=== PATIENT | male | born 1965 ===

== ENCOUNTER 2024-10-17 11:59 | Emergency (ER) | payer OTHER ==
[~2024-10-17] VITALS: Ht 172.7 cm; Wt 79.4 kg
[2024-10-17] MEDS ORDERED: Aspirin 325 MG Tab PO ONE (13:25)
[2024-10-17] MEDS ORDERED: NS 1,000 ML IV ONE (13:37)
[2024-10-17 13:45] LABS: BASOPHILS ABSOLUTE AUTO 0.06 K/mm3 (0.00-0.23); BASOPHILS PERCENT AUTO 1 % (0-2); EOSINOPHILS ABSOLUTE AUTO 0.09 K/mm3 (0.00-0.68); EOSINOPHILS PERCENT AUTO 1 % (0-6); Hematocrit 44.8 % (37.0-53.0); Hemoglobin 15.1 g/dL (13.5-17.5); IMMATURE GRAN ABSOLUTE AUTO 0.06 K/mm3 (0.00-0.10); IMMATURE GRAN PERCENT AUTO 1 % (0-1); LYMPHOCYTES ABSOLUTE AUTO 2.51 K/mm3 (0.84-5.20); LYMPHOCYTES PERCENT AUTO 25 % (21-46); MONOCYTES ABSOLUTE AUTO 0.74 K/mm3 (0.16-1.47); MONOCYTES PERCENT AUTO 7 % (4-13); Mean Corpuscular HGB 32.9 pg (26.0-34.0); Mean Corpuscular HGB Conc 33.7 g/dL (31.5-36.5); Mean Corpuscular Volume 98 fL (80-100); Mean Platelet Volume 10.2 fL (9.1-12.4); NEUTROPHILS ABSOLUTE AUTO 6.72 K/mm3 (1.96-9.15); NEUTROPHILS PERCENT AUTO 66 % (41-73); Platelet Count 832 K/mm3 (150-400); RDW Coefficient Variation 14.6 % (11.7-14.2); RDW Standard Deviation 52.1 fL (35.1-46.3); Red Blood Cell Count 4.59 M/mm3 (4.30-5.90); White Blood Cell Count 10.18 K/mm3 (4.00-11.30)
[2024-10-17 13:53] LABS: International Normalized Ratio 0.99; Prothrombin Time Results 10.6 Sec (9.7-11.5)
[2024-10-17] MEDS ORDERED: HydrALAZINE HCl 20 MG / ML 1ML Vial IV ONE ×2 (14:10→14:55)
[2024-10-17 14:12] LABS: Albumin, Blood 4.1 g/dL (3.4-5.0); Albumin/Globulin Ratio 1.3 (0.8-1.8); Bilirubin, Total 1.2 mg/dL (0.1-1.0); Bun/Creatinine Ratio 18.9 (12.0-20.0); Calcium, Blood 9.4 mg/dL (8.5-10.1); Creatinine, Blood 1.22 mg/dL (0.60-1.20); Globulin, Blood 3.1 g/dL (2.2-4.0); Potassium, Blood 4.5 mmol/L (3.5-5.5); Total Protein, Blood 7.2 g/dL (6.4-8.2)
[2024-10-17] MEDS ORDERED: Clopidogrel Bisulfate 75 MG Tab PO ONE (14:25)
[2024-10-17] MEDS ORDERED: OxyCODONE HCL 5 MG TAB PO ONE (15:00)
[2024-10-17] MEDS ORDERED: LORazepam 1 MG Tab PO ONE ×2 (16:10→19:05)
[2024-10-17 16:12] LABS: Source, Urine Clean Catch
[2024-10-17 16:21] LABS: Bilirubin, Urine Neg (Neg); Blood, Urine Neg (Neg); Glucose Qualitative, Urine Neg (Neg); Ketones, Urine Neg (Neg); Leukocyte Esterase, Urine Neg (Neg); Nitrite, Urine Neg (Neg); Protein, Urine Neg (Neg); Urobilinogen, Urine NORM (Normal)
[2024-10-17 16:46] LABS: Appearance, Urine Clear (Clear); Color, Urine Pale Yellow (P-Yellow)
[2024-10-17 16:48] LABS: U Amphetamine Screen Not Detected; U Barbituate Screen Not Detected; U Benzodiazapine Screen Not Detected; U Buprenorphine Screen Not Detected; U Cannabinoids Screen DETECTED; U Cocaine Screen Not Detected; U Methadone Screen Not Detected; U Methamphetamine Screen Not Detected; U Opiates Screen Not Detected; U Oxycodone Screen Not Detected; U Phencyclidine Screen Not Detected
[2024-10-17] MEDS ORDERED: Morphine Sulfate 4 MG/1 ML Injection IV ONE (17:30)
[2024-10-17] MEDS ORDERED: Nicotine Polacrilex 2 MG Gum PO PRN (19:05)
[2024-10-17] MEDS ORDERED: Nicotine 21 MG PATCH TOP ONE (19:05)
[2024-10-18] MEDS ORDERED: LORazepam 2 MG/ML 1ML Injection IV ONE (01:15)
== END 2024-10-18 05:52 | disposition home or self-care (01) ==
LOC: ER 11:59
PROVIDERS: Physician Assistant; Student in an Organized Health Care Education/Training Program
DX: I65.22 Occlusion and stenosis of left carotid artery (principal); R47.01 Aphasia; I10 Essential (primary) hypertension; Z86.73 Personal history of transient ischemic attack (TIA), and cerebral infarction without residual deficits; Z88.7 Allergy status to serum and vaccine
CPT/HCPCS: 70450; 70496; 70498; 80053; 81003; 82140; 82947; 84484; 85025; 85610; 93005; 93010; 96361; 96374-59; 96375; 99285-25; A9270; J0360; J2060; J2270; J7030; Q9967

== ENCOUNTER → 2024-11-06 | Outpatient (CLI) | payer OTHER ==
[~2024-11-06] MED LIST: AMLO5 PO; ATOR80 PO; Aspir 8181 MG PO; B-1100 M1 PO; CLOP75 PO; CYMBALTA30 M2 PO; FOLI1 PO; HYDURE500 PO; Hydroxyzine HCl50 MG PO; LATUDA120 M1 PO; NEURONTIN300 MG PO; Naltrexone HCl50 MG PO; Norco 5-325 Ta1 EACH PO; OLME20 PO; OLMESARTAN MEDO40 MG PO; PANT40 PO; PRAZOSIN HCL1 M2 PO; VITAMIN B-1100 M1 PO
[2024-11-06 16:24] LABS: BASOPHILS ABSOLUTE AUTO 0.05 K/mm3 (0.00-0.23); BASOPHILS PERCENT AUTO 1 % (0-2); EOSINOPHILS ABSOLUTE AUTO 0.15 K/mm3 (0.00-0.68); EOSINOPHILS PERCENT AUTO 2 % (0-6); Hematocrit 39.1 % (37.0-53.0); IMMATURE GRAN ABSOLUTE AUTO 0.05 K/mm3 (0.00-0.10); IMMATURE GRAN PERCENT AUTO 1 % (0-1); LYMPHOCYTES ABSOLUTE AUTO 2.91 K/mm3 (0.84-5.20); LYMPHOCYTES PERCENT AUTO 33 % (21-46); MONOCYTES ABSOLUTE AUTO 0.67 K/mm3 (0.16-1.47); MONOCYTES PERCENT AUTO 8 % (4-13); Mean Corpuscular HGB 32.7 pg (26.0-34.0); Mean Corpuscular HGB Conc 33.2 g/dL (31.5-36.5); Mean Corpuscular Volume 99 fL (80-100); Mean Platelet Volume 9.9 fL (9.1-12.4); NEUTROPHILS ABSOLUTE AUTO 4.98 K/mm3 (1.96-9.15); NEUTROPHILS PERCENT AUTO 57 % (41-73); RDW Coefficient Variation 14.6 % (11.7-14.2); RDW Standard Deviation 51.8 fL (35.1-46.3); Red Blood Cell Count 3.97 M/mm3 (4.30-5.90); White Blood Cell Count 8.81 K/mm3 (4.00-11.30)
[2024-11-06 16:37] LABS: Platelet Count 1070 K/mm3 (150-400)
[2024-11-06 16:38] LABS: Albumin, Blood 3.7 g/dL (3.4-5.0); Albumin/Globulin Ratio 1.2 (0.8-1.8); Creatinine, Blood 1.22 mg/dL (0.60-1.20); Globulin, Blood 3.1 g/dL (2.2-4.0); Potassium, Blood 4.1 mmol/L (3.5-5.5); Total Protein, Blood 6.8 g/dL (6.4-8.2)
== END ==
LOC: LAB SHORT 16:13 → LAB 16:13
DX: D75.839 Thrombocytosis, unspecified (principal)
CPT/HCPCS: 80053; 83605; 85025; 85651; 86141

== ENCOUNTER 2024-12-01 13:40 | Inpatient (IN) | payer OTHER ==
[~2024-12-01] VITALS: Ht 175.3 cm; Wt 88.1 kg
[2024-12-01] MEDS ORDERED: Norvasc5 MG PO ×2 (13:55)
[2024-12-01] MEDS ORDERED: NS 1,000 ML IV SCH ×2 (14:30→17:35)
[2024-12-01 14:47] LABS: BASOPHILS ABSOLUTE AUTO 0.08 K/mm3 (0.00-0.23); BASOPHILS PERCENT AUTO 1 % (0-2); EOSINOPHILS ABSOLUTE AUTO 0.21 K/mm3 (0.00-0.68); EOSINOPHILS PERCENT AUTO 2 % (0-6); Hematocrit 39.4 % (37.0-53.0); Hemoglobin 13.8 g/dL (13.5-17.5); IMMATURE GRAN ABSOLUTE AUTO 0.16 K/mm3 (0.00-0.10); IMMATURE GRAN PERCENT AUTO 1 % (0-1); LYMPHOCYTES ABSOLUTE AUTO 2.92 K/mm3 (0.84-5.20); LYMPHOCYTES PERCENT AUTO 23 % (21-46); MONOCYTES ABSOLUTE AUTO 0.96 K/mm3 (0.16-1.47); MONOCYTES PERCENT AUTO 8 % (4-13); Mean Corpuscular HGB Conc 35.0 g/dL (31.5-36.5); Mean Corpuscular Volume 96 fL (80-100); NEUTROPHILS ABSOLUTE AUTO 8.46 K/mm3 (1.96-9.15); NEUTROPHILS PERCENT AUTO 66 % (41-73); NRBC ABSOLUTE 0.00 K/mm3 (0.00-0.02); NRBC Auto 0.0 /100 WBC (0.0-0.2); RDW Coefficient Variation 15.5 % (11.7-14.2); RDW Standard Deviation 55.0 fL (35.1-46.3)
[2024-12-01 14:57] LABS: Platelet Count 1133 K/mm3 (150-400)
[2024-12-01 15:13] LABS: Source, Urine Clean Catch
[2024-12-01 15:23] LABS: Alanine Aminotransfer (ALT/SGP 37.0 U/L (12-78); Albumin, Blood 3.8 g/dL (3.4-5.0); Albumin/Globulin Ratio 1.2 (0.8-1.8); Anion Gap 9.0 mmol/L (3-11); Aspartate Aminotrans (AST/SGOT 26.0 U/L (12-37); Bilirubin, Total 0.8 mg/dL (0.1-1.0); Blood Urea Nitrogen 13.0 mg/dL (8-24); CO2, Blood 27.0 mmol/L (21-32); Calcium, Blood 8.7 mg/dL (8.5-10.1); Chloride, Blood 106.0 mmol/L (98-108); Creatinine, Blood 1.09 mg/dL (0.60-1.20); Globulin, Blood 3.1 g/dL (2.2-4.0); Glucose, Blood 101.0 mg/dL (70-99); Potassium, Blood 3.6 mmol/L (3.5-5.5); Sodium, Blood 138.0 mmol/L (136-145); Total Protein, Blood 6.9 g/dL (6.4-8.2)
[2024-12-01 15:45] LABS: Bilirubin, Urine Neg (Neg); Color, Urine Yellow (P-Yellow); Glucose Qualitative, Urine Neg (Neg); Ketones, Urine Neg (Neg); Leukocyte Esterase, Urine Neg (Neg); Protein, Urine 1+ (Neg); Specific Gravity, Urine 1.020 (1.003-1.022); Urobilinogen, Urine NORM (Normal)
[2024-12-01] MEDS ORDERED: FentaNYL Citrate 50 MCG/ML 2 ML Injection IV PRN (17:05)
[2024-12-01 18:00] VITALS: BP 161/92
--- NOTE | 2024-12-01 19:18 | NUR ---
ARRIVAL/SHIFT SUMMARY PT ARRIVED TO THE FLOOR AROUND 1744, TRANSFERRED SELF TO HIS BED THOUGH HE WAS A BIT UNSTEADY ON HIS FEET WHEN HE FIRST STOOD UP. ORIENTED HIM TO THE UNIT AND PRIMARY STAFF (RN/PCT/RESIDENTIAL APPRAISER). [facility] STROKE SCALE TEST PERFORMED, PT SAID SOME OF THE TASKS MAKE HIM LIGHT HEADED BUT HE WAS ABLE TO COMPLETE THEM ALL (SEE NIH STROKE ASSESSMENT). HE WAS PLEASANT WITH STAFF TODAY, BOLUS RUNNING AT TIME OF ARRIVAL AND WAS DISCONNECTED WHEN COMPLETED. NO ACUTE EVENTS SINCE ARRIVAL. CALL LIGHT IN REACH.
[2024-12-01 20:24] VITALS: BP 123/86
[2024-12-01] MEDS ORDERED: LURASIDONE (LATUDA) 20 MG TABLET PO SCH (21:00)
[2024-12-01 23:30] VITALS: BP 122/81
[2024-12-02 03:37] VITALS: BP 127/87
[2024-12-02 04:24] LABS: BASOPHILS ABSOLUTE AUTO 0.08 K/mm3 (0.00-0.23); BASOPHILS PERCENT AUTO 1 % (0-2); EOSINOPHILS ABSOLUTE AUTO 0.23 K/mm3 (0.00-0.68); EOSINOPHILS PERCENT AUTO 2 % (0-6); Hematocrit 35.7 % (37.0-53.0); Hemoglobin 12.0 g/dL (13.5-17.5); IMMATURE GRAN ABSOLUTE AUTO 0.12 K/mm3 (0.00-0.10); IMMATURE GRAN PERCENT AUTO 1 % (0-1); LYMPHOCYTES ABSOLUTE AUTO 2.90 K/mm3 (0.84-5.20); LYMPHOCYTES PERCENT AUTO 29 % (21-46); MONOCYTES ABSOLUTE AUTO 0.72 K/mm3 (0.16-1.47); MONOCYTES PERCENT AUTO 7 % (4-13); Mean Corpuscular HGB Conc 33.6 g/dL (31.5-36.5); Mean Corpuscular Volume 98 fL (80-100); NEUTROPHILS ABSOLUTE AUTO 6.04 K/mm3 (1.96-9.15); NEUTROPHILS PERCENT AUTO 60 % (41-73); NRBC ABSOLUTE 0.00 K/mm3 (0.00-0.02); NRBC Auto 0.0 /100 WBC (0.0-0.2); Platelet Count 951 K/mm3 (150-400); RDW Coefficient Variation 15.6 % (11.7-14.2); RDW Standard Deviation 55.8 fL (35.1-46.3)
[2024-12-02 04:43] LABS: Anion Gap 6.0 mmol/L (3-11); Blood Urea Nitrogen 15.0 mg/dL (8-24); CO2, Blood 27.0 mmol/L (21-32); Calcium, Blood 8.7 mg/dL (8.5-10.1); Chloride, Blood 109.0 mmol/L (98-108); Creatinine, Blood 1.11 mg/dL (0.60-1.20); Glucose, Blood 101.0 mg/dL (70-99); Potassium, Blood 4.1 mmol/L (3.5-5.5); Sodium, Blood 138.0 mmol/L (136-145)
--- NOTE | 2024-12-02 06:48 | NUR ---
PT ALERT AND ORIENTED X4. AMBULATING INDEPENDENTLY IN THE ROOM AND TO THE BATHROOM. PT STILL COMPLAINING OF RIGHT SIDED WEAKNESS AND JOINT PAIN. MEDICATED PER MAR WHICH RESOLVED THE PAIN. NO COMPLAINS OF CHEST PAIN. ON ROOM AIR. PT EDUCATED ON SMOKING CESSATTION AND VERBALLY STATES UNDERSTANDING. PT ALSO ADVISED TO HAVE FAMILY BRING IN HIS HOME MEDS ( LATUDA) PER PHARMACY IT IS NOT AVAILABLE. CALL ECHOLS WITHIN REACH.NO FURTHER STROKE LIKE SYMPTOMS WITH THE EXCEPTION OF THE RESIDUAL OF PREVOIUS STROKES AND WHAT PT PRESENTED WITH IN THE ED.
[2024-12-02 07:52] VITALS: BP 137/93
[2024-12-02] MEDS ORDERED: DULoxetine HCL 30 MG Cap DR PO SCH (09:00)
[2024-12-02] MEDS ORDERED: Enoxaparin 40 MG/0.4 ML SYR SC SCH (09:00)
[2024-12-02 13:08] VITALS: BP 152/98
--- NOTE | 2024-12-02 15:49 | NUR ---
SHIFT SUMMARY/TRANSFER TO SURGICAL PATIENT AOX4 ABLE TO MAKE NEEDS KNOWN. HE DENIES CP OR SOB. HE DOES HAVE RIGHT SIDED WEAKNESS WITH NUMBNESS IN HIS RIFHT FACE. HE DID COMPLAIN THAT THE NUMBNESS IN FACE FACE WAS A LITTLE WORSE JUST PRIOR TO GOING FOR THE MRI HOSPITALIS AWARE. HE IS INDEPENDENT IN HIS ROOM AND TOLERATING HIS MEALS AND HIS VITALS ARE STABLE. REPORT WAS GIVEN TO SURGICAL NURSE.
--- NOTE | 2024-12-02 16:00 | NUR ---
pt to room 211 transferred from PCU. Seen for cva like symptoms. pt presently up and ambulatory in room. speech clear. no obvious deficits noted. pt plan for shower per his request. Oriented to room. Will continue to monitor.
[2024-12-02 16:30] VITALS: BP 148/106
[2024-12-02 16:32] VITALS: BP 138/92
--- NOTE | 2024-12-02 17:43 | NUR ---
End of shift pt resting. SO at bedside. No new symptoms noted. Pt was able to shower. Both IVs to SL. Will continue to monitor.
[2024-12-02 19:55] VITALS: BP 142/93
[2024-12-03 00:59] VITALS: BP 112/83
[2024-12-03 03:00] VITALS: BP 134/80
--- NOTE | 2024-12-03 04:29 | NUR ---
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 PT IS A/OX4 WITH VSS. PAIN MANAGED PER EMAR. BASILIO PO INTAKE, DENIES N/V. AMBULATED SEVERAL TIMES IND HALLWAYS. DENIES CHANGES IN NEURO STATUS R/T CVA, CONT TO HAVE RIGHT SIDED DEFICITS- SEE NEURO ASSESSMENT. IVF PATENT AND SL TO SUSAN. PT APPEARS TO HAVE SLEPT T/O MOST OF EVENING. IS CURRENTLY RESTING IN BED WITH EYES CLOSED, RESP EVEN AND UNLABORED WITH CALL LIGHT IN REACH. WILL CONT TO REPEAT NEURO ASSESSMENTS AND GIVE REPORT TO ONCOMING RN.
[2024-12-03 05:34] LABS: BASOPHILS ABSOLUTE AUTO 0.10 K/mm3 (0.00-0.23); BASOPHILS PERCENT AUTO 1 % (0-2); EOSINOPHILS ABSOLUTE AUTO 0.21 K/mm3 (0.00-0.68); EOSINOPHILS PERCENT AUTO 2 % (0-6); Hematocrit 38.8 % (37.0-53.0); Hemoglobin 13.4 g/dL (13.5-17.5); IMMATURE GRAN ABSOLUTE AUTO 0.09 K/mm3 (0.00-0.10); IMMATURE GRAN PERCENT AUTO 1 % (0-1); LYMPHOCYTES ABSOLUTE AUTO 1.91 K/mm3 (0.84-5.20); LYMPHOCYTES PERCENT AUTO 19 % (21-46); MONOCYTES ABSOLUTE AUTO 0.71 K/mm3 (0.16-1.47); MONOCYTES PERCENT AUTO 7 % (4-13); Mean Corpuscular HGB Conc 34.5 g/dL (31.5-36.5); Mean Corpuscular Volume 98 fL (80-100); NEUTROPHILS ABSOLUTE AUTO 7.21 K/mm3 (1.96-9.15); NEUTROPHILS PERCENT AUTO 70 % (41-73); NRBC ABSOLUTE 0.00 K/mm3 (0.00-0.02); NRBC Auto 0.0 /100 WBC (0.0-0.2); Platelet Count 965 K/mm3 (150-400); RDW Coefficient Variation 15.5 % (11.7-14.2); RDW Standard Deviation 55.1 fL (35.1-46.3)
[2024-12-03 06:11] LABS: Anion Gap 7.0 mmol/L (3-11); Blood Urea Nitrogen 21.0 mg/dL (8-24); CO2, Blood 26.0 mmol/L (21-32); Calcium, Blood 9.2 mg/dL (8.5-10.1); Chloride, Blood 108.0 mmol/L (98-108); Creatinine, Blood 1.01 mg/dL (0.60-1.20); Glucose, Blood 100.0 mg/dL (70-99); Potassium, Blood 4.1 mmol/L (3.5-5.5); Sodium, Blood 137.0 mmol/L (136-145)
[2024-12-03 07:07] VITALS: BP 151/94
--- NOTE | 2024-12-03 10:26 | NUR ---
PT FRUSTRATED WITH ONCOLOGY WHEN ENTERED ROOM, BEGAN TO DISCUSS AM MEDS WITH PATIENT. PT VERY ANIMATED AND STATED FRUSTRATED WITH ONCOLOGY. STATED HE DIDN'T KNOW WHAT TO DO TO GET ONCOLOGY TO ADVOCATE FOR HIM AND HE WAS ABOUT TO "MAKE A STATEMENT" TO GET ATTENTION. WHEN DISCUSSING THIS STATEMENT WITH PATIENT, PT STATED SATIFSIFED WITH NURSING CARE AND HAS NO PLANS OF HARMING ANYONE. NOTIFIED SHIRA Lamb WHO NOTIFIED SECURITY. ASKED PT IF HE WANTED DR SOUZA TO BE NOTIFIED THAT PT DID NOT WANT TO SEE HIM, PT STATED HE WOULD SEE HIM BECAUSE HE WAS AFRAID IF HE DECLINED SEEING DR SOUZA, HE WOULDN'T BE ABLE TO SEE ANYONE IN ONCOLOGY. CALLED DR SOUZA'S OFFICE TO ASK THEY NOTIFY DR SOUZA PT WOULD LIKE TO SEE HIM BUT IS VERY FRUSTRATED. MEDICATED PT PER PT REQUEST FOR ANXIETY PER ORDERS.
--- NOTE | 2024-12-03 11:57 | NUR ---
RAFAEL/PALLIATIVE CARE IN TO SEE PT.
[2024-12-03 12:48] VITALS: BP 150/96
--- NOTE | 2024-12-03 12:54 | NUR ---
DR SOUZA AND RAFAEL IN WITH PT.
--- NOTE | 2024-12-03 16:16 | NUR ---
FENTANYL PATCH DC'D PRIOR TO ADMINISTRATION PULLED FENTANYL PATCH AND WENT TO ADMINISTER AND FOUND ORDER HAD BEEN DC'D. UPON FOLLOWING UP, DR ROBERTSON AND PHARMACY FELT LIKE PATCH WAS NOT APPROPRIATE FOR PATIENT AND OTHER NARCOTICS SHOULD BE USED INSTEAD. OXYCODONE WAS ORDERED Q4P. UPON REPORTING THIS TO PATIENT, PATIENT BECAME ANGRY, STATING WOULD NOT TAKE OXYCODONE BECAUSE IT "ONLY MAKES ME HIGH AND DOESN'T DO ANYTHING FOR THE PAIN." REPORTED THIS TO DR ROBERTSON WHO STATED HE CAN HAVE TRAMADOL IF PT WOULD LIKE BECAUSE PT STATED OXY AND NORCO BOTH ARE INEFFECTIVE FOR HIS PAIN MANAGEMENT. RELAYED THIS TO PT WHO CONTINUED TO BE ANGRY, STATING THAT TRAMADOL WAS LIKE TAKING TYLENOL. THEN PT STATED WAS "DONE WITH IT ALL" AND "JUST WON'T TAKE ANYTHING". ADVISED PT IV PUSH FENTANYL WAS STILL AVAILABE TO WHICH PT DID NOT REPLY. PT VOICED AGGRAVATION THAT FENTANYL WAS A MED THAT WAS EFFECTIVE FOR HIS PAIN BUT NOW "THEY ARE TAKING IT AWAY." PT DENIED ANY NEEDS WHEN ASKED IF THERE WAS ANYTHING THIS RN COULD DO FOR HIM.
[2024-12-03 16:26] VITALS: BP 123/86
--- NOTE | 2024-12-03 16:37 | NUR ---
CALLED TO PT'S ROOM BY BEDSIDE RN. RN AND PROVIDER REPORT PT IS AGGITATED WITH HIS DX OF JAK2 AND CHRONIC PAIN. PT LIKES TO BE ADDRESSED "TIG". HE REPORTS CONSERNS OF TAKING HYDREA. TIG REPORTS SIDE EFFECTS OF DIZZINESS, DIARRHEA AND LIGHT SENSITIVITY. DURING THIS VISIT, DR. SOUZA TO ROOM. DR. SOUZA HE REVIEWED JAK2 THE VARIOUS MUTATIONS. RISK VS BENEFIT OF RX: HYDREA. AFTER A GREAT DEAL OF Q&A, PT AGREEABLE TO TAKING HYDREA. PT WAS ABLE TO TEACH BACK THE IMPORTANCE OF RX COMPLIANCE FOR EFFECTIVENESS TO DECREASE PLT. TIG HAS A FOLLOW UP APPT WITH ON 12/10/24 AND APPT WITH PCP ON 12/06/24. TIG REPORTS CHRONIC PAIN AND THEY ONLY RELIEF HE HAS HAD FROM PAIN IS THIS VISIT WHEN HE WAS GIVEN 25 MCG OF IV FENTANYL. AFTER REVIEWING CASE WITH DR. ROBERTSON, ONE TIME ORDER RCV'D FOR 12 MCG FENTANLY PATCH TO MAINTAIN A CONSISTANT DOSE OF ANALGESIC TO AVOID PAIN BEING UNMANAGEABLE. PT REPORTS BEING UNHOUSED, NO PHONE (MESSAGE PHONE), AND ONLY $3 IN THE BANK. THIS PC RN PROVIDED THERAPUTIC LISTENING. PT APPEARED CALM AND AT EASE AT CONCLUSION OF VISIT. UPDATE PROVIDED TO PRIMARY RN AND CM PC TO REMAIN AVAILABLE NEEDED.
--- NOTE | 2024-12-03 16:41 | NUR ---
DR ROBERTSON TALKING TO PATIENT ON PHONE. DISCUSSED PAIN MANAGMENT WITH PT OPTIONS WITH PATIENT PT SAID HE "MIGHT WELL CHECK MYSELF OUT." ASKED DR ROBERTSON TO SPEAK TO PATIENT, DR ROBERTSON CALLED INTO ROOM.
--- NOTE | 2024-12-03 17:04 | NUR ---
PT AGITATED AFTER SPEAKING TO DR ROBERTSON/CAME TO NURSES DESK. ASKED WHEN REC'D LAST DOSE OF FENTANYL AND WAS TOLD 1350. ADVISED PT COULD HAVE ANOTHER DOSE EVERY 4 HRS NEEDED, THE NEXT DOSE BEING AVAILABLE AT 1750. PT REITERATES DOES NOT UNDERSTAND WHY FENTANYL PATCH CANNOT BE TRIED WHILE IN HOSPITAL. ATTEMPTED TO EXPLAIN TO PT THAT IF PT TOLERATES THE FENTANYL Q4 HRS THROUGH NIGHT WITHOUT ANY ADVERSE EFFECTS, DR ROBERTSON STATED WOULD REVISIT FENTANYL PATCH TOMORROW. PT BECAME ANGRY AND WALKED AWAY FROM DESK.
[2024-12-03 19:06] VITALS: BP 118/84
[2024-12-03] MEDS ORDERED: FentaNYL Citrate 50 MCG/ML 2 ML Injection IV PRN (21:30)
[2024-12-04 01:56] VITALS: BP 134/96
--- NOTE | 2024-12-04 04:05 | NUR ---
SHIFT SUMMARY VSS, TELE READS SB @50. PT ENDORSES SLEEPING ON AND OFF T/O THE NIGHT. PT REPORTS THAT THE IV FENTYNAL HAS BEEN HELPFUL FOR HIS PAIN MANAGEMENT, AND THAT THIS IS THE ONLY TIME HE HAS EXPERIENCED RELIEF IN OVER 5 YEARS. PT BECOMES ALMOST TEARFUL WHEN SPEAKING ABOUT THIS. HE REPORTS THAT HE FEELS VERY TIRED AND WORN OUT WITH HIS CURRENT HEALTH SITUATION, AND THAT HE FEELS VERY HOPELESS WHEN THINKING ABOUT HIS FUTURE. HE EXPRESSES CONCERN OVER HIS PAIN MEDICATION REGIMINE BEING ALTERED AND POSSIBLY NOT RECIEVEING THE FENTYNAL PATCH TODAY. PTS NEURO SYMPTOMS HAVE NOT WORSENED OR IMPROVED. HE REPORTS NO BM T/O THE SHIFT, AND IS VOIDING W/O DIFFICULTY. THE PT IS TOLLERATING PO INTAKE W/O N/V. OVERALL, NO ACUTE EVENTS NOTED T/O THE NIGHT. PLAN FOR POSSIBLE D/C TODAY W/ FOLLOW UP WITH DR. SOUZA.
[2024-12-04 06:15] VITALS: BP 159/98
[2024-12-04 07:16] LABS: BASOPHILS ABSOLUTE AUTO 0.08 K/mm3 (0.00-0.23); BASOPHILS PERCENT AUTO 1 % (0-2); EOSINOPHILS ABSOLUTE AUTO 0.20 K/mm3 (0.00-0.68); EOSINOPHILS PERCENT AUTO 2 % (0-6); Hematocrit 39.2 % (37.0-53.0); Hemoglobin 13.2 g/dL (13.5-17.5); IMMATURE GRAN ABSOLUTE AUTO 0.09 K/mm3 (0.00-0.10); IMMATURE GRAN PERCENT AUTO 1 % (0-1); LYMPHOCYTES ABSOLUTE AUTO 2.13 K/mm3 (0.84-5.20); LYMPHOCYTES PERCENT AUTO 21 % (21-46); MONOCYTES ABSOLUTE AUTO 0.60 K/mm3 (0.16-1.47); MONOCYTES PERCENT AUTO 6 % (4-13); Mean Corpuscular HGB Conc 33.7 g/dL (31.5-36.5); Mean Corpuscular Volume 99 fL (80-100); NEUTROPHILS ABSOLUTE AUTO 7.16 K/mm3 (1.96-9.15); NEUTROPHILS PERCENT AUTO 70 % (41-73); NRBC ABSOLUTE 0.00 K/mm3 (0.00-0.02); NRBC Auto 0.0 /100 WBC (0.0-0.2); RDW Coefficient Variation 15.6 % (11.7-14.2); RDW Standard Deviation 55.6 fL (35.1-46.3)
[2024-12-04 07:27] LABS: Platelet Count 1056 K/mm3 (150-400)
[2024-12-04 07:37] LABS: Anion Gap 9.0 mmol/L (3-11); Blood Urea Nitrogen 22.0 mg/dL (8-24); CO2, Blood 29.0 mmol/L (21-32); Calcium, Blood 9.1 mg/dL (8.5-10.1); Chloride, Blood 104.0 mmol/L (98-108); Creatinine, Blood 1.22 mg/dL (0.60-1.20); Glucose, Blood 120.0 mg/dL (70-99); Potassium, Blood 4.1 mmol/L (3.5-5.5); Sodium, Blood 138.0 mmol/L (136-145)
[2024-12-04] MEDS ORDERED: FentaNYL Citrate 50 MCG/ML 2 ML Injection IV PRN (13:00)
[2024-12-04 15:33] VITALS: BP 132/93
--- NOTE | 2024-12-04 19:10 | NUR ---
PATIENT IS ALERT AND ORIENTED AND COOPERATIVE WITH CARE. PAIN MANAGED PER EMAR, ESPECIALLY WITH THE INCREASED DOSE OF FENTANYL. PATIENT IS IND IN THE ROOM, WALKS THE HALLS. ON RA. VSS. WILL CONTINUE TO MONITOR
[2024-12-04 19:40] VITALS: BP 139/76
[2024-12-04 22:38] VITALS: BP 177/108
[2024-12-05] VITALS (8 sets, daily range): BP systolic 135–182; BP diastolic 86–120
[2024-12-05 05:08] LABS: BASOPHILS ABSOLUTE AUTO 0.08 K/mm3 (0.00-0.23); BASOPHILS PERCENT AUTO 1 % (0-2); EOSINOPHILS ABSOLUTE AUTO 0.26 K/mm3 (0.00-0.68); EOSINOPHILS PERCENT AUTO 2 % (0-6); Hematocrit 38.8 % (37.0-53.0); Hemoglobin 13.1 g/dL (13.5-17.5); IMMATURE GRAN ABSOLUTE AUTO 0.12 K/mm3 (0.00-0.10); IMMATURE GRAN PERCENT AUTO 1 % (0-1); LYMPHOCYTES ABSOLUTE AUTO 2.52 K/mm3 (0.84-5.20); LYMPHOCYTES PERCENT AUTO 23 % (21-46); MONOCYTES ABSOLUTE AUTO 0.74 K/mm3 (0.16-1.47); MONOCYTES PERCENT AUTO 7 % (4-13); Mean Corpuscular HGB Conc 33.8 g/dL (31.5-36.5); Mean Corpuscular Volume 99 fL (80-100); NEUTROPHILS ABSOLUTE AUTO 7.46 K/mm3 (1.96-9.15); NEUTROPHILS PERCENT AUTO 67 % (41-73); NRBC ABSOLUTE 0.00 K/mm3 (0.00-0.02); NRBC Auto 0.0 /100 WBC (0.0-0.2); Platelet Count 994 K/mm3 (150-400); RDW Coefficient Variation 15.2 % (11.7-14.2); RDW Standard Deviation 55.8 fL (35.1-46.3)
--- NOTE | 2024-12-05 05:28 | NUR ---
SHIFT SUMMARY: REPORT FROM RICHARD FAIR, ASSUMED CARE OF PATIENT. MEDICATED PT FOR JOIMT PAIN PER EMAR T/O NOC. PT WAS GETTING FENTANYL 50MCG EVERY 2 HOURS UNTIL 0027 DOSE THEN PATIENT SLEPT UNTIL 05. MEDICATED HIM FOR PAIN LAST AT 05. PT GOING BACK TO SLEEP. INDEPENDENT IN REYNOLDS AND ROOM. WEAKNESS TO BOTH RUE AND RLE, DOES NOT EFFECT AMBULATION. ALERT, ORIENTED, PLEASANT AND COOPERATIVE WITH CARE. ANXIOUS AT TIMES. WILL GIVE REPORT TO RN TAKING PATIENT.
[2024-12-05 05:40] LABS: Anion Gap 7.0 mmol/L (3-11); Blood Urea Nitrogen 24.0 mg/dL (8-24); CO2, Blood 28.0 mmol/L (21-32); Calcium, Blood 8.7 mg/dL (8.5-10.1); Chloride, Blood 104.0 mmol/L (98-108); Creatinine, Blood 1.15 mg/dL (0.60-1.20); Glucose, Blood 103.0 mg/dL (70-99); Potassium, Blood 4.2 mmol/L (3.5-5.5); Sodium, Blood 135.0 mmol/L (136-145)
--- NOTE | 2024-12-05 11:17 | NUR ---
CONT BI OX APPLIED AT THIS TIME. PT HR 56, SP02 97% ON RA
[2024-12-05] MEDS ORDERED: Morphine Sulfate 20 MG/1ML 1 ML Oral Syringe PO PRN (17:20)
--- NOTE | 2024-12-05 18:27 | NUR ---
SUMMARY: PT IS A/O, VSS AND NO CHANGE IN TELE. PT CONTINUES TO NEED 50MCG OF FENTANYAL Q2. PT RATES PAIN 10/10 CONSISTANTLY. PT ALSO MOVES ABOUT ROOM WELL AND TOOK A SHOWER TODAY. PT HAS EXPRESSIVE APHAGIA AT BASELINE, AND REPORTS BURNING NEUROPATHY THAT GETS BETTER WITH FENTANYAL. NO ACUTE CHANGE IN NEURO STATUS. PT USES CALL LIGHT AND MAKES NEEDS KNOWN.
[2024-12-06] VITALS (7 sets, daily range): BP systolic 117–153; BP diastolic 75–98
[2024-12-06 05:08] LABS: BASOPHILS ABSOLUTE AUTO 0.10 K/mm3 (0.00-0.23); BASOPHILS PERCENT AUTO 1 % (0-2); EOSINOPHILS ABSOLUTE AUTO 0.28 K/mm3 (0.00-0.68); EOSINOPHILS PERCENT AUTO 2 % (0-6); Hematocrit 39.1 % (37.0-53.0); Hemoglobin 13.0 g/dL (13.5-17.5); IMMATURE GRAN ABSOLUTE AUTO 0.11 K/mm3 (0.00-0.10); IMMATURE GRAN PERCENT AUTO 1 % (0-1); LYMPHOCYTES ABSOLUTE AUTO 2.16 K/mm3 (0.84-5.20); LYMPHOCYTES PERCENT AUTO 18 % (21-46); MONOCYTES ABSOLUTE AUTO 0.79 K/mm3 (0.16-1.47); MONOCYTES PERCENT AUTO 6 % (4-13); Mean Corpuscular HGB Conc 33.2 g/dL (31.5-36.5); Mean Corpuscular Volume 98 fL (80-100); NEUTROPHILS ABSOLUTE AUTO 8.86 K/mm3 (1.96-9.15); NEUTROPHILS PERCENT AUTO 72 % (41-73); NRBC ABSOLUTE 0.00 K/mm3 (0.00-0.02); NRBC Auto 0.0 /100 WBC (0.0-0.2); RDW Coefficient Variation 15.2 % (11.7-14.2); RDW Standard Deviation 55.0 fL (35.1-46.3)
[2024-12-06 05:21] LABS: Platelet Count 1026 K/mm3 (150-400)
[2024-12-06 05:25] LABS: Anion Gap 6.0 mmol/L (3-11); Blood Urea Nitrogen 24.0 mg/dL (8-24); CO2, Blood 29.0 mmol/L (21-32); Calcium, Blood 8.5 mg/dL (8.5-10.1); Chloride, Blood 105.0 mmol/L (98-108); Creatinine, Blood 1.16 mg/dL (0.60-1.20); Glucose, Blood 110.0 mg/dL (70-99); Potassium, Blood 3.7 mmol/L (3.5-5.5); Sodium, Blood 136.0 mmol/L (136-145)
--- NOTE | 2024-12-06 08:02 | NUR ---
SHIFT SUMMARY NOC. PT A/O X4. PT VERBALIZED FRUSTRATION AND ANXIETY REGARDING PAIN CONTROL. PT MEDICATED FOR PAIN Q2 HOURS WITH IV FENT. PT DECLINED OTHER PAIN MEDICATION WHEN OFFERED. PT MEDICATED FOR ANXIETY X2 THIS SHIFT. PT'S TELEMETRY INTACT. PT DENIED CHEST PAIN THIS SHIFT. PT VOIDING URINE. PT HYPERTENSIVE THIS SHIFT. DISCUSSED CONCERNS WITH STRIKER OFF AND DR. GROVE. PT HAD CRITICAL PLATELET VALUE THIS AM. CALL LIGHT IN REACH.
[2024-12-06] MEDS ORDERED: Ondansetron HCl 2 MG / ML 2ML Vial IV PRN (09:10)
--- NOTE | 2024-12-06 13:38 | NUR ---
Case detials reviewed with Dr Finn and Risk Management. 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 The attending provider has made it abundantly clear that with his present clinical course, he is not elegible to receive his preferred pharmacologic solution, but will instead be treated with therapies more appropriate to his condition. He has further been instructed that while he is fully entitled to decline all treatments, in the event of continued non-adherence to reasonable and medically safe options, his discharge will be facilitated and a referral issued to a subacute pain clinic for follow up and ongoing management. The principal reportedly expressed understanding.
--- NOTE | 2024-12-06 18:43 | NUR ---
SHIFT SUMMARY PATIENT ALERT AND INTERACTIVE. MOOD VERY LABILE. PATIENT EASILY AGITATED WHEN SPEAKING WITH DR ROBERTSON. PATIENT REPEATEDLY DEMANDING TO HAVE THE FENTANYL PATCH FOR PAIN CONTROL. DR ROBERTSON REPEATEDLY TRIED TO EXPLAIN TO PATIENT ABOUT NARCOTIC NAIVE CONCERNS AND RESPIRATORY DEPRESSION IN A CALM MATTER. PATIENT HITTING FIST ON BEDSIDE TABLE REPEATEDLY WHILE TALKING TO DR ROBERTSON. SECURITY CALLED BY ME FOR A STAND BY BECAUSE OF BEHAVIOR AND POTENTIALLY ESCALATING. DR ROBERTSON CONTINUED TO SPEAK TO PATIENT IN A CALM MANNER AND TOLD PATIENT THAT HE WOULD COME BACK LATER AND SEE HIM IF HE WAS OK WITH THAT. PATIENT THREATENING TO CALL AN COMPUTER APPLICATIONS INSTRUCTOR. PATIENT STATING WHEN HE IS GIVEN THE FENTANYL, HE HAS NO PAIN. HE STATES THAT HE HAS HAD PAIN FOR YEARS AND WAS DEALING WITH IT FINE. NOW THAT HE WAS GIVEN THE FENTANYL AND HAS NO PAIN, HE DOES NOT WANT TO GO BACK HAVING PAIN. PATIENT STATES IF THEY DO NOT ALLOW HIM TO HAVE THE FENTANYL PATCH, HE WILL DO WITH DIGNITY BECAUASE HE DOES NOT WANT TO LIVE IN PAIN AGAIN. ATTEMPTED TO RE EDUCATE PATIENT REPEATEDLY ABOUT PAIN CONTROL AND THE USE OF IV PAIN MEDS AND ORAL MEDS. PATIENT CONTINUES TO STATE THE IV FENTANYL IS THE ONLY THING THAT WORKS FOR HIM. PATIENT VOMITTING AFTER ROXANOL DOSE, PATIENT NAUSEATED AFTER OXYCODONE DOSES X2. PATIENT MEDICATED WITH ZOFRAN FOR NAUSEA X2 ALONG WITH ANXIETY MEDICATION. PATIENT STATES BOTH DID NOT CHANGE HIS PAIN LEVEL. PATIENT CONTINUES TO STATE THAT NOTHING ELSE WORKS FOR HIM. PATIENT STATES HE DOES USE MARIJUANA AT HOME ALONG WITH TAKING NORCO 5/325. PATIENT STATES THAT HE HAS TAKEN UP TO 20MG OF THE NORCOS AT ONE TIME. HE STATES THAT IT DOES NOT MAKE ANY DIFFERENCE WHEN HE DOES THAT. PATIENT HAS HX OF MULTIPLE TBI'S ALONG WITH MULTIPL CVA'S PER PATIENT. PATIENT NOTED TO ONLY HAVE SLIGHT R SIDED WEAKNESS AND IS INDEPENDENT IN THE ROOM AND HALLS.
--- NOTE | 2024-12-06 23:58 | NUR ---
PHYSICIAN COMMUNICATION PRIMARY RN CALLED HOSPITALIST EARLIER IN SHIFT REGARDING PT NOT RECIEVING HOME MED & RECIEVED ORDER TO SUB FOR ANOTHER MED WE CARRIED IN HOSPITAL. PHARMACY INFORMED PRIMARY RN BERENICE THERE WAS NO SUBSTITUTE FOR LATUDA. PRIMARY RN CONCERNED PT HASNT BEEN RECIEVING PSYCH MED & COULD BE HAVING WITHDRAWALS OR WORSENING BEHAVIOR/THOUGHTS BECAUSE HE HASNT TAKEN MED IN 5 DAYS. BERENICE FAIR ASKED THIS NURSE TO SEE IF WE COULD GET A PRN PO ATIVAN ORDER, MOR Perez STATED "ABSOLUTELY NOT". INFORMED BERENICE NO NEW ORDERS.
[2024-12-07 03:39] VITALS: BP 142/86
--- NOTE | 2024-12-07 04:18 | NUR ---
SHIFT SUMMARY GALA WAS ALERT, FULLY ORIENTED, AND INDEPENDENT IN ROOM. PT IS COOPERATIVE, BUT ANXIOUS. VSS. AFTER REVIEWING PT EMAR IT WAS DETERMINED THAT PT HAS NOT RECIEVED HIS BIPOLAR DEPRESSION MEDICATION FOR THE DURATION OF HIS HOSPITAL STAY. HOSPITALIST NOTIFIED DUE TO CONCERNS FOR POSSIBILLITY OF WITHDRAWL. PT HOME MED NOT AVAILABLE FROM PHARMACY, NO FORMULARY SUB AVAILABLE, CERTIFIED PROFESSIONAL ERGONOMIST DISCUSSED THIS CONCERN WITH HOSPITALIST. NO ORDERS RECIEVED. PT PAIN AT BASELINE MEDICATING PRN. PT BRADYCARDIC T/O SHIFT. NO ACUTE EVENTS OR CHANGES TO PT CONDITION NOTED.
[2024-12-07 05:00] LABS: BASOPHILS ABSOLUTE AUTO 0.07 K/mm3 (0.00-0.23); BASOPHILS PERCENT AUTO 1 % (0-2); EOSINOPHILS ABSOLUTE AUTO 0.20 K/mm3 (0.00-0.68); EOSINOPHILS PERCENT AUTO 2 % (0-6); Hematocrit 37.7 % (37.0-53.0); Hemoglobin 12.7 g/dL (13.5-17.5); IMMATURE GRAN ABSOLUTE AUTO 0.06 K/mm3 (0.00-0.10); IMMATURE GRAN PERCENT AUTO 1 % (0-1); LYMPHOCYTES ABSOLUTE AUTO 1.89 K/mm3 (0.84-5.20); LYMPHOCYTES PERCENT AUTO 16 % (21-46); MONOCYTES ABSOLUTE AUTO 0.69 K/mm3 (0.16-1.47); MONOCYTES PERCENT AUTO 6 % (4-13); Mean Corpuscular HGB Conc 33.7 g/dL (31.5-36.5); Mean Corpuscular Volume 98 fL (80-100); NEUTROPHILS ABSOLUTE AUTO 8.58 K/mm3 (1.96-9.15); NEUTROPHILS PERCENT AUTO 75 % (41-73); NRBC ABSOLUTE 0.00 K/mm3 (0.00-0.02); NRBC Auto 0.0 /100 WBC (0.0-0.2); Platelet Count 941 K/mm3 (150-400); RDW Coefficient Variation 15.6 % (11.7-14.2); RDW Standard Deviation 56.2 fL (35.1-46.3)
[2024-12-07 05:54] LABS: Anion Gap 6.0 mmol/L (3-11); Blood Urea Nitrogen 21.0 mg/dL (8-24); CO2, Blood 30.0 mmol/L (21-32); Calcium, Blood 8.8 mg/dL (8.5-10.1); Chloride, Blood 105.0 mmol/L (98-108); Creatinine, Blood 1.28 mg/dL (0.60-1.20); Glucose, Blood 96.0 mg/dL (70-99); Potassium, Blood 4.5 mmol/L (3.5-5.5); Sodium, Blood 136.0 mmol/L (136-145)
[2024-12-07 07:11] VITALS: BP 121/89
--- NOTE | 2024-12-07 14:42 | NUR ---
ASSUMED CARE OF PT. REPORT STATED PT WAS VERY AGGRESSIVE AND DEMANDING REGARDING HIS CONTROL OF PAIN, BUT FOR THIS SHIFT PT HAS BEEN VERY PLEASENT AND COOPERATIVE STILL VERY CONCERNED WITH CONTROLLING PAIN. PT HAS BEEN IND IN ROOM TOOK SHOWER AND HAS BEEN CALLING APPROPRIATLY, SPOKE WITH PT ABOUT HOME PAIN CONTROL AND THAT HIS CURRENT MEDICATIONS REGIMEN WOULD NOT BE POSSIBLY IF HE WAS STILL TAKING IV. PT DOES NOT FEEL HE CAN BASILIO BEING OFF IV MEDICATIONS AT THIS POINT. I EXPRESSED WITH PT THAT IT IS VERY IMPORTANT THAT HE HAVE SOME ONE BRING HIS PSYCH MEDICATION IN FROM HOME AND HE AGREED THAT MAYBE THAT WAS THE REASON FOR NOT BEING VERY COOPERATIVE WITH CURRENT PAIN MANAGMENT. PT CURRENTLY ON A 4HOUR/ 2 HOUR PAIN SCHEDULE. I NOTIFIED DR BHAT THAT I NEEDED CLARIFICATION REGARDING PT PAIN MANAGMENT AND WAS TOLD TO CONT CURRENT PRESCRIBED MEDS AND THAT HE WOULD COME LATER TO SPEAK WITH PT, HE ALSO AGREED THAT THIS PAIN MANAGEMENT WAS NOT ACCEPTABE
[2024-12-07 15:19] VITALS: BP 116/73
[2024-12-07] MEDS ORDERED: FentaNYL Citrate 50 MCG/ML 2 ML Injection IV PRN (17:30)
--- NOTE | 2024-12-07 17:55 | NUR ---
DR BHAT RETURNED AND HAD A VERY LONG CONVERATION WITH PT CONCERNING WHAT HAPPENS AFTER HOSPITAL. PT HOME MEDICATIONS HAVE ARRIED AND WILL BE STARTING THIS EVENING ALSO DR BHAT WILL BE STARTING NEW MEDS FOR PT. CURRENT PAIN MANIGMENT TO BE CONTINUED. NO CHANGE IN CONDITION. NO NEURO DEFICITS TO RIGHT SIDE THAT ARE NOTICIBLE. CONT TO MONITOR
[2024-12-07] MEDS ORDERED: LURASIDONE (LATUDA) 20 MG TABLET PO SCH ×2 (18:00→21:00)
[2024-12-07 20:18] VITALS: BP 177/109
[2024-12-07 21:43] VITALS: BP 135/95
[2024-12-07 23:59] VITALS: BP 130/86
[2024-12-08 02:41] VITALS: BP 164/98
--- NOTE | 2024-12-08 05:15 | NUR ---
SHIFT SUMMARY AGLA WAS ALERT FULLY ORIENTED AND INDEPENDENT IN ROOM. PT DISPOSITION GREATLY IMPROVED FROM PREVIOUS SHIFTS. BETTER PAIN CONTOL TONIGHT. B/P ELEVATED WITH PAIN, IMPROVES WITH PAIN MEDS. PT SEEMS CLINICALLY STABLE. NO ACUTE EVENTS TONIGHT. NO NOTED CHANGES TO PT CONDITION.
[2024-12-08 05:54] LABS: BASOPHILS ABSOLUTE AUTO 0.07 K/mm3 (0.00-0.23); BASOPHILS PERCENT AUTO 1 % (0-2); EOSINOPHILS ABSOLUTE AUTO 0.20 K/mm3 (0.00-0.68); EOSINOPHILS PERCENT AUTO 2 % (0-6); Hematocrit 37.0 % (37.0-53.0); Hemoglobin 12.5 g/dL (13.5-17.5); IMMATURE GRAN ABSOLUTE AUTO 0.04 K/mm3 (0.00-0.10); IMMATURE GRAN PERCENT AUTO 0 % (0-1); LYMPHOCYTES ABSOLUTE AUTO 2.22 K/mm3 (0.84-5.20); LYMPHOCYTES PERCENT AUTO 21 % (21-46); MONOCYTES ABSOLUTE AUTO 0.66 K/mm3 (0.16-1.47); MONOCYTES PERCENT AUTO 6 % (4-13); Mean Corpuscular HGB Conc 33.8 g/dL (31.5-36.5); Mean Corpuscular Volume 100 fL (80-100); NEUTROPHILS ABSOLUTE AUTO 7.66 K/mm3 (1.96-9.15); NEUTROPHILS PERCENT AUTO 71 % (41-73); NRBC ABSOLUTE 0.00 K/mm3 (0.00-0.02); NRBC Auto 0.0 /100 WBC (0.0-0.2); Platelet Count 946 K/mm3 (150-400); RDW Coefficient Variation 15.7 % (11.7-14.2); RDW Standard Deviation 57.3 fL (35.1-46.3)
[2024-12-08 06:43] LABS: Alanine Aminotransfer (ALT/SGP 32.0 U/L (12-78); Albumin, Blood 3.6 g/dL (3.4-5.0); Albumin/Globulin Ratio 1.3 (0.8-1.8); Anion Gap 6.0 mmol/L (3-11); Aspartate Aminotrans (AST/SGOT 19.0 U/L (12-37); Bilirubin, Total 0.9 mg/dL (0.1-1.0); Blood Urea Nitrogen 21.0 mg/dL (8-24); CO2, Blood 30.0 mmol/L (21-32); Calcium, Blood 8.9 mg/dL (8.5-10.1); Chloride, Blood 105.0 mmol/L (98-108); Creatinine, Blood 1.27 mg/dL (0.60-1.20); Globulin, Blood 2.8 g/dL (2.2-4.0); Glucose, Blood 97.0 mg/dL (70-99); Potassium, Blood 4.4 mmol/L (3.5-5.5); Sodium, Blood 137.0 mmol/L (136-145); Total Protein, Blood 6.4 g/dL (6.4-8.2)
[2024-12-08 07:26] VITALS: BP 144/85
[2024-12-08] MEDS ORDERED: FentaNYL Citrate 50 MCG/ML 2 ML Injection IV PRN (08:00)
--- NOTE | 2024-12-08 13:14 | NUR ---
ASSUMPTION OF CARE ASSUMED CARE OF PT @0700. PLEASANT. C/O PAIN - MEDICATED PER EMAR. VSS. INDEPENDENT IN ROOM. TOLERATED BREAKFAST WELL. CONTINENT. USING CALL LIGHT APPROPRIATELY. [phone] DR BHAT INTO ROOM TO DISCUSS DECREASING PAIN MED DOSING, CHANGING PAIN MED ROUTINE, DISCUSSING TREATMENT OPTIONS, CURRENT TREATMENT PLAN, ETC. PT VISIBLY UPSET BUT CALM/COOPERATIVE WITH DR. EXPRESSING FEAR OF NOT BEING ABLE TO TREAT PAIN, LACK OF RESOURCES/FINANCES, FRUSTRATION WITH HIS DIAGNOSIS OF "JAK2 CONDITION", ETC. DR BHAT UTILIZING THERAPEUTIC COMMUNICATION ALONG WITH THIS RN TO SOOTHE PATIENT. MAKES STATEMENTS SUCH "IF I COULD, I WOULD DO WITH [facility] RIGHT NOW, I CAN'T LIVE WITH THE PAIN." "IF I WERE TO BE DC'D ID HAVE TO FIND STREET DRUGS TO MANAGE THE PAIN" PLAN TO GET PSYCH CONSULT TO HELP MANAGE MENTAL HEALTH. DR RODRIGUEZ TO ROOM, ASSESSED PT FOR SI, SI HOLD ORDERS PLACED. DR RODRIGUEZ OUT OF ROOM. PT PHYSICALLY UPSET, PACING IN ROOM UPON THIS RN ARRIVAL. PT STATES "I WASN'T SAYING I WAS GOING TO KILL MYSELF, I'M NOT A THREAT, I CANNOT BE IMPRISONED, I HAVE RIGHTS" - ATTEMPTING TO CALL WOOD LAST MAKER. SI HOLD INTERVENTIONS UNDERWAY WITH ROOM MITIGATION - PT CURRENTLY REFUSING TO HAVE ROOM MOVED. PT REFUSING ITEMS TO BE REMOVED FROM REACH. STATES "ON TUESDAY WHEN I CAN GET A WOOD LAST MAKER, IM SUING THIS HOSPITAL, THEY CAN'T DO THIS TO ME". "I WILL NOT BE COMBATIVE UNLESS SOMEONE TRIES TO LAY HANDS ON ME, THEN I DON'T KNOW WHAT I'LL DO" " I DON'T WANT YOU TO THINK (TALKING TO THIS RN) THAT IM THREATENING YOU AT ALL BUT I'M SAYING SECURITY OR OTHER STAFF WHO WANT TO TRY AND CONTROL ME" 1300 DR BHAT BACK IN TO DISCUSS FURTHER CARE WITH PT. DISCUSS ANXIOLYTIC THERAPY, SI HOLD, PAIN MANAGEMENT, ETC. CURRENTLY, PT STATES NOT WANTING IV PAIN MEDS (ASKED THIS RN TO REMOVE IV - COMPLETED PER REQUEST), WANTING MORE ANXIOLYTICS - DISCUSSED WITH DR BHAT, AND HAS CALMED DOWN BUT IS PRESENTING ANXIOUS AND POTENTIALY CONFRONTIVE IF PROVIDED ANY OTHER STRESSOR AT THIS TIME. 1335 - [facility] ADMISSION ORDERS RECEIVED - WORKING ON PAPERWORK NOW. WILL HAVE SECURITY TO ASSIST IN TRANSFER.
--- NOTE | 2024-12-08 16:26 | NUR ---
BHU ATTEMPT / AMA 1530 - PT EDUCATED REGARDING UPCOMING BHU ADMISSION AND DC FROM HOSPITAL. PT REFUSING TO LEAVE. STATES "I'M NOT SUICIDAL" "I FEEL COMFORTABLE HERE WITH THE STAFF HERE" "I HAVE TO BE PARANOID NOW" ( HE READS THE MEDICATION NAME ON THE HYDROXYZINE TABLET BEING ADMINISTERED TO JANAE THAT HE ASKED FOR). ASKS FOR DR SPENCER TO COME BACK TO ROOM TO DISCUSS THIS SI HOLD DECISION. 1545 - DR SPENCER TO ROOM. LAID OUT PLAN OF CARE FOR PT. STATES REASONING BEHIND HOLD IS OUT OF SAFETY CONCERN REGARDING SI RELATED COMMENTS - PT ARGUES THAT WAS ABOUT " WITH [facility] PAPERWORK" NOT THE ACT OF SUICIDE ITSELF - EXPLAINED TO PT THAT THESE COMMENTS ARE TAKEN SERIOUSLY BY STAFF AND HAVE TO BE BY LAW. SECURITY TO ROOM TO ASSIST WITH CONVERSATION. AWAITING OUTSIDE OF DOOR. AFTER BRIEF ARGUMENT AND EDUCATIONAL DISCUSSION BETWEEN PROVIDER/PATIENT, PROVIDER JOHANNA LEFT ROOM. SECURITY IN TO SPEAK WITH PT ATTEMPTING TO FACILITATE TRANSFER TO U. PT GIVEN LAYOUT OF WHAT U CARE LOOKS LIKE, THE INVENTORY OF HIS BELONGINGS AND THEN BEING LOCKED AWAY SECURELY UNTIL DC, AND THE FACT HE CAN'T WEAR STREET CLOTHES - PT NOT AGREEABLE TO THIS. ASKS "WILL YOU FORCE ME TO GO" TO WHICH STAFF REASPOND, "WE WILL NOT FORCE YOU TO GO, YOU ARE FREE TO LEAVE THE FACILITY BUT POLICE WILL HAVE TO FIND YOU AND BRING YOU TO THE BHU". PT CONSISNTENTLY ASKS "WHAT CHARGES ARE BEING BROUGHT AGAINST ME TO WHICH THE POLICE WOULD ARREST ME", TO WHICH CONSISTENT RESPONSE FROM STAFF WAS "THERE ARE NO CHARGES BEING BROUGHT AGAINST YOU BUT YOU HAVE BEEN DEEMED NECESSARY TO RECEIVE MENTAL HEALTH CARE FOR THE SUICIDAL LIKE COMMENTS MADE TODAY WHICH MEANS YOU MAY BE RETAINED PER PHYSICIAN HOLD ORDERS. THIS WAS REITERATED TO THE PT MULTIPLE TIMES THAT STAFF WOULD NOT BE LAYING HANDS ON HIM IF HE CHOSE TO LEAVE BUT POLICE WOULD HAVE TO BE CALLED. PT HANDS SHAKING. STAFF MAINTAINING APPROPRIATE PHYSICAL DISTANCE FROM STAFF. 1619 PT CHOSE TO TAKE BELONGINGS OUT OF ROOM WITH SECURITY. AT THIS TIME PT APPEARS TO BE LEAVING AMA. AT THIS TIME UNWILLING TO SPEAK ANY MORE WITH STAFF.
--- NOTE | 2024-12-08 16:46 | NUR ---
1635 BHU ACCORDING TO SECURITY PERSONNEL. PT INTENDING TO LEAVE AMA BUT THEN HAD THEM ESCORT PT TO U ADMISSION.
[2024-12-09] MEDS ORDERED: OLAN10 PO ×2 (13:30)
[2024-12-09] MEDS ORDERED: LOSA50 PO ×2 (13:30)
== END 2024-12-08 16:24 | DRG 815 ==
LOC: ER 13:40 → PCU 13:41 → SURS 13:41 → PCU 13:41 → SURS 12-02 15:57
PROVIDERS: Emergency Medicine; Internal Medicine; Student in an Organized Health Care Education/Training Program; ADMIT Family Medicine
DX: D47.3 Essential (hemorrhagic) thrombocythemia (principal); I69.951 Hemiplegia and hemiparesis following unspecified cerebrovascular disease affecting right dominant side; R47.01 Aphasia; Z59.811 Housing instability, housed, with risk of homelessness; D47.1 Chronic myeloproliferative disease; F31.9 Bipolar disorder, unspecified; M79.7 Fibromyalgia; M25.562 Pain in left knee; F43.10 Post-traumatic stress disorder, unspecified; M25.561 Pain in right knee; G89.29 Other chronic pain; Z66 Do not resuscitate; F17.210 Nicotine dependence, cigarettes, uncomplicated; F41.1 Generalized anxiety disorder; I69.921 Dysphasia following unspecified cerebrovascular disease; Z59.86 Financial insecurity; Z88.7 Allergy status to serum and vaccine; Z98.890 Other specified postprocedural states; Z79.82 Long term (current) use of aspirin; Z79.02 Long term (current) use of antithrombotics/antiplatelets; Z79.899 Other long term (current) drug therapy
CPT/HCPCS: 36415; 70450; 70551; 71045; 80048; 80053; 84484; 85025; 93005; 93010; 93306; 94762; 96360; 99285-25; A9270; J2405; J3010; J7030

== ENCOUNTER 2024-12-08 13:48 | Inpatient (IN) | payer OTHER ==
[~2024-12-08 13:48] MED LIST changes: +Norvasc5 MG PO
--- NOTE | 2024-12-08 17:15 | NUR ---
ADMISSION: PT BROUGHT TO UNIT WITH SECURITY FROM [facility] ON A HOLD THAT WAS PLACED BY DR. PURCELL. PT STATES, "I'M NOT AGREEABLE TO BEING HERE, I DID NOT AGREE TO COME", "I CAME AFTER I WAS THREATENTED WITH THE POLICE". INTAKE PROCESS EXPLAINED TO PT. PT VISIBLY UPSET, CLENCHING HIS FISTS, TAKING DEEP BREATHS, SPEAKING VERY SHORTLY WITH STAFF. PT BELONGINGS HANDLED PER PROTOCOL. PT CHANGED INTO SCRUBS AND ORIENTED TO UNIT. PT IS NOT COOPERATIVE WITH INTAKE. PT STATES, "I WON'T EVER TRUST ANYONE AGAIN". PT SIGNED RELEASE FOR FAMILY AND BELONGINGS FORM. PT APPEARED TO STRUGGLE HOLDING THE PEN TO SIGN. STATES, "I CAN'T SIGN THINGS BECAUSE OF THE PAIN IN MY HANDS". PT AMBULATED SLOWLY TO HIS ROOM, STOPPING ON THE WAY TO LEAN AGAINST THE WALL AND KNEEL DOWN. PT STATES THAT HIS LAST PAIN MEDICATION WAS AROUND 1000 TODAY. PROVIDER CONTACTED BY RESEARCH CHEF AND REQUESTED ORDERS FOR PAIN MANAGEMENT BE PLACED. PT RESTING ON HIS BED, ALLOWED TO HAVE QUIET TIME TO DECOMPRESS PRIOR TO REATTEMPTING ADMISSION DOCUMENTATION.
--- NOTE | 2024-12-08 17:56 | NUR ---
SKIN DOCUMENTION: 2 RN SKIN CHECK WAS COMPLETED UPON ARRIVAL AND PT CHANGED INTO UNIT SCRUBS. NOTED TO HAVE A BANDAID TO HIS L UPPER ARM. WHEN ASKED WHAT IT WAS FROM PT STATED, "I DON'T KNOW WHY DONT YOU TELL ME", "IT WAS WHERE THE IV WAS". BANDAGE LEFT IN PLACE AT THIS TIME R/T PT AGGITATION R/T ADMISSION.
[2024-12-08] MEDS ORDERED: Aluminum Hydroxide 320MG/5ML 473 ML PO PRN (18:50)
[2024-12-08] MEDS ORDERED: HYDROcodone 5-APAP 325 TAB PO PRN (19:00)
[2024-12-08] MEDS ORDERED: Polyethylene Glycol 3350 17 gm PO PRN (19:15)
[2024-12-08] MEDS ORDERED: Ondansetron 4 MG SoluTab MM PRN (19:15)
[2024-12-08] MEDS ORDERED: Misc. Tablet PO SCH (21:00)
--- NOTE | 2024-12-08 21:33 | NUR ---
Attempt times two to give HS medications plus hydrocodone for pain. Patient just kept looking at the ceiling or away and wouldn't answer. Tried to explain that the medications would at least make his discomfort more bearable and his amitryptiline would help him sleep. Patient refused to speak and closed eyes. WILL continue close monitoring and observe for opportuities to offer medications again for some relief. Check every 15 minutes for safety
--- NOTE | 2024-12-09 00:41 | NUR ---
Patient up to bathroom when this RN and MHA checked in on him. When i spoke his name, he just stepped out of bathroom and walked back to bed. Will continue every 15 minute checks
--- NOTE | 2024-12-09 04:17 | NUR ---
Patient has gotten up several times to the bathroom, but continues to refuse to speak or make eye contact with this nurse or any staff. Refused three times all HS medications including [place]. Unable to assist in any way with patient's admission. Have and will continue with every 15 minute visual checks for patient safety and wellness.
[2024-12-09] MEDS ORDERED: Multivitamins 1 Tab PO SCH (09:00)
[2024-12-09] MEDS ORDERED: DULoxetine HCL 30 MG Cap DR PO SCH (09:00)
--- NOTE | 2024-12-09 09:13 | NUR ---
PT LAYING IN BED ON HIS BACK LOOKING AT THE CEILING WITH EYES OPEN, APPEARS TO BE MASSAGING HIS KNUCKLES. PT WOULD NOT LOOK AT THIS RN OR RESPOND TO QUESTIONS. PT WAS NOTIFIED X 2 WHEN BREAKFAST ARRIVED, HE DID NOT GET UP TO EAT. PT WAS NOTIFIED WHEN LAB ARRIVED FOR BLOOD DRAW AND THIS RN REQUESTED TO TAKE VITAL SIGNS. PT REMAINED IN BED AND DID NOT VERBALLY RESPOND. CONTINUED TO LOOK UP AT THE CEILING, RUBBING HIS HANDS TOGETHER. OFFERED PATIENT MEDICATIONS TO WHICH HE ALSO DID NOT VERBALLY RESPOND. WILL CONTINUE TO MONITOR PT UNIT PROTOCOL AND ATTEMPT TO ENGAGE PATIENT THROUGHOUT THE DAY.
--- NOTE | 2024-12-09 11:44 | NUR ---
DR. PURCELL SPOKE TO PATIENT FROM THE DOORWAY OF ROOM. PT DIDN'T SPEAK TO PROVIDER INITIALLY, PROVIDER INFORMED PATIENT THAT THERE IS A POTENTIAL FOR A 180 COMMITMENT AND THAT HE WILL BE SEEN BY DR. DAVIDSON TOMORROW. AFTER PROVIDER WALKED AWAY, PATIENT CAME TO THE DOORWAY AND SAID SOMETHING THAT THIS RN DID NOT HEAR. AFTER THE PROVIDER LEFT THE UNIT PT WALKED TO THE NURSES STATION, STATED, "I HAVE BEEN THREATENED AND I AM IN FEAR FOR MY LIFE, I WANT TO TALK TO THE POLICE". THEN WALKED BACK TO HIS ROOM. ELENA CAR CUSTOMIZER AND THIS RN WENT TO SPEAK WITH PT. OFFERED PT A COPY OF HIS CIVIL RIGHTS, THE PHONE IF HE WISHES TO CONTACT HIS SECTION LEADER AND THE NUMBER FOR THE PATIENT ADVOCATE. PT DID NOT ACKNOWLEDGE THE OFFERED INFORMATION, CONTINUED TO REPEAT "I HAVE BEEN THREATENED AND I AM IN FEAR FOR MY LIFE". OFFERED TO CONTACT [employer] FOR PATIENT TO SPEAK WITH THEM. PT DID NOT ACKNOWLEDGE THE OFFER AND REPEATED "I HAVE BEEN THREATENED AND I AM IN FEAR FOR MY LIFE". INFORMED PT THAT HE WOULD LIKE TO HAVE THE OFFERED INFORMATION, USE THE PHONE TO CONTACT HIS SECTION LEADER OR SPEAK WITH SECURITY TO LET US KNOW AND WE WILL ASSIST HIM.
[2024-12-09 12:38] VITALS: BP 151/129
--- NOTE | 2024-12-09 13:27 | NUR ---
PT TRANSFERRED BACK TO ER FOR MEDICAL EVAL PT AxOx4. WALKED UP TO NURSES STATION AT APPROX 1230 REPORTING "KIDNEY PAIN, PAINFUL URINATION AND URINARY RETENTION." PT ALSO REPEATEDLY STATED "THIS IS A MEDICAL EMERGENCY AND I NEED TO GO TO THE HOSPITAL." EFM CALLED FOR CONSULT AND CONSIDERING THE PATIENTS SYMPTOMS AND VITAL SIGNS, HE RECOMMENDED THE PATIENT RETURN TO THE ER FOR MEDICAL EVALUATION. AMBULANCE CALLED FOR TRANSPORT, AND HEAD STOCK TRANSFER CLERK IN ED NOTIFIED OF SITUATION. PYSCHIATRIST ALSO MADE AWARE. PT REFUSED MEDICATIONS FOR PAIN, BUT HE DID APPEAR TO BE IN PAIN WITH SHAKEY HANDS, PALLOR APPEARANCE, ALONG WITH SLOWLY DECENDING TO THE GROUND HE STATED, "I NEED TO LIE DOWN. I AM FEELING DIZZY." PT REPORTED HIS PAIN 10/10 AT THIS TIME. PT WAS SAFELY ESCORTED OUT WITH MEDICS IN [facility]. PROVIDER PLACED DC ORDERS AND INVOLUNTARY HOLD DOCUMENTS WERE FAXED TO [facility] ER.
[2024-12-09] MEDS ORDERED: OLAN10 PO ×2 (13:30)
[2024-12-09] MEDS ORDERED: LOSA50 PO ×2 (13:30)
--- NOTE | 2024-12-09 15:20 | NUR ---
PT BELONGINGS REMAIN ON THE UNIT, UNOPENED UPON TRANSFER TO [facility] ER FOR TREATMENT. [facility] LIST WITH INDEXER.
[2024-12-10] MEDS ORDERED: LATUDA PO (11:04)
== END 2024-12-09 12:56 | disposition short-term general hospital (02) | DRG 885 ==
LOC: BHU 13:48
PROVIDERS: ADMIT Student in an Organized Health Care Education/Training Program
DX: F31.4 Bipolar disorder, current episode depressed, severe, without psychotic features (principal); I69.851 Hemiplegia and hemiparesis following other cerebrovascular disease affecting right dominant side; Z59.811 Housing instability, housed, with risk of homelessness; G89.29 Other chronic pain; M79.7 Fibromyalgia; I10 Essential (primary) hypertension; I25.10 Atherosclerotic heart disease of native coronary artery without angina pectoris; I69.820 Aphasia following other cerebrovascular disease; I69.828 Other speech and language deficits following other cerebrovascular disease; Z88.7 Allergy status to serum and vaccine; Z59.86 Financial insecurity; Z79.82 Long term (current) use of aspirin; Z79.899 Other long term (current) drug therapy; Z79.891 Long term (current) use of opiate analgesic
CPT/HCPCS: A9270

== ENCOUNTER 2024-12-09 13:03 | Observation (INO) | payer OTHER ==
[~2024-12-09] VITALS: Ht 172.7 cm; Wt 74.8 kg
[2024-12-09] MEDS ORDERED: OLAN10 PO (13:30)
[2024-12-09] MEDS ORDERED: LOSA50 PO (13:30)
[2024-12-09 15:11] LABS: Source, Urine Clean Catch
[2024-12-09 15:19] LABS: Bilirubin, Urine Neg (Neg); Color, Urine Yellow (P-Yellow); Glucose Qualitative, Urine Neg (Neg); Ketones, Urine 3+ (Neg); Leukocyte Esterase, Urine Neg (Neg); Protein, Urine Neg (Neg); Specific Gravity, Urine 1.015 (1.003-1.022); Urobilinogen, Urine NORM (Normal)
[2024-12-09 15:51] LABS: Hematocrit 41.7 % (37.0-53.0); Hemoglobin 14.4 g/dL (13.5-17.5); Mean Corpuscular HGB Conc 34.5 g/dL (31.5-36.5); NRBC ABSOLUTE 0.00 K/mm3 (0.00-0.02); NRBC Auto 0.0 /100 WBC (0.0-0.2); RDW Coefficient Variation 15.1 % (11.7-14.2); RDW Standard Deviation 52.5 fL (35.1-46.3)
[2024-12-09 15:57] LABS: Mean Corpuscular Volume 95 fL (80-100)
[2024-12-09 15:58] LABS: Platelet Count 1113 K/mm3 (150-400)
[2024-12-09 16:17] LABS: Alanine Aminotransfer (ALT/SGP 36.0 U/L (12-78); Albumin, Blood 4.3 g/dL (3.4-5.0); Albumin/Globulin Ratio 1.3 (0.8-1.8); Anion Gap 8.0 mmol/L (3-11); Aspartate Aminotrans (AST/SGOT 30.0 U/L (12-37); Bilirubin, Total 1.7 mg/dL (0.1-1.0); Blood Urea Nitrogen 20.0 mg/dL (8-24); CO2, Blood 27.0 mmol/L (21-32); Calcium, Blood 9.7 mg/dL (8.5-10.1); Chloride, Blood 104.0 mmol/L (98-108); Creatinine, Blood 1.13 mg/dL (0.60-1.20); Globulin, Blood 3.2 g/dL (2.2-4.0); Glucose, Blood 94.0 mg/dL (70-99); Magnesium, Blood 1.9 mg/dL (1.6-2.4); Potassium, Blood 4.1 mmol/L (3.5-5.5); Sodium, Blood 135.0 mmol/L (136-145); Total Protein, Blood 7.5 g/dL (6.4-8.2)
[2024-12-09 16:25] LABS: BASOPHILS ABSOLUTE MAN 0.23 K/mm3 (0.00-0.23); BASOPHILS PERCENT MAN 2 % (0-2); EOSINOPHILS ABSOLUTE MAN 0.00 K/mm3 (0.00-0.68); EOSINOPHILS PERCENT MAN 0 % (0-6); LYMPHOCYTES ABSOLUTE MAN 2.37 K/mm3 (0.84-5.20); LYMPHOCYTES PERCENT MAN 20 % (21-46); MONOCYTES ABSOLUTE MAN 0.11 K/mm3 (0.16-1.47); MONOCYTES PERCENT MAN 1 % (4-13); NEUTROPHILS ABSOLUTE MAN 9.13 K/mm3 (1.96-9.15); SEG NEUTROPHILS PERCENT MAN 77 % (41-73)
[2024-12-09] MEDS ORDERED: OxyCODONE 10/Acetamin 325 TABLET PO ONE ×2 (16:30→19:10)
[2024-12-09 18:26] LABS: U Amphetamine Screen Not Detected; U Barbituate Screen Not Detected; U Benzodiazapine Screen Not Detected; U Buprenorphine Screen Not Detected; U Cannabinoids Screen DETECTED; U Cocaine Screen Not Detected; U Methadone Screen Not Detected; U Methamphetamine Screen Not Detected; U Opiates Screen DETECTED; U Oxycodone Screen DETECTED; U Phencyclidine Screen Not Detected
[2024-12-09] MEDS ORDERED: OxyCODONE 5 mg/Acetamin 325 mg TABLET PO ONE (19:05)
[2024-12-10] MEDS ORDERED: LATUDA PO (11:04)
== END 2024-12-09 20:05 | disposition other institution (70) ==
LOC: ER 13:03 → ERHOLD 17:02
PROVIDERS: Emergency Medicine; ADMIT Student in an Organized Health Care Education/Training Program
DX: R10.9 Unspecified abdominal pain (principal); M54.50 Low back pain, unspecified; F31.9 Bipolar disorder, unspecified; D69.6 Thrombocytopenia, unspecified; I10 Essential (primary) hypertension; I69.951 Hemiplegia and hemiparesis following unspecified cerebrovascular disease affecting right dominant side; I69.992 Facial weakness following unspecified cerebrovascular disease; I69.920 Aphasia following unspecified cerebrovascular disease; Z88.7 Allergy status to serum and vaccine; Z79.899 Other long term (current) drug therapy; Z79.82 Long term (current) use of aspirin
CPT/HCPCS: 74176; 80053; 81003; 83690; 83735; 85025; 99285-25; A9270; G0378

== ENCOUNTER 2024-12-09 18:15 | Inpatient (IN) | payer OTHER ==
[~2024-12-09 18:15] MED LIST changes: +LOSA50 PO; +OLAN10 PO
[2024-12-09] MEDS ORDERED: DiphenhydrAMINE HCl 50 MG/ML 1ML Vial IM PRN (19:45)
[2024-12-09] MEDS ORDERED: Haloperidol Lactate Inj. 5 MG/ML Injection IM PRN (19:50)
[2024-12-09] MEDS ORDERED: Polyethylene Glycol 3350 17 gm PO PRN (19:50)
[2024-12-09] MEDS ORDERED: Aluminum Hydroxide 320MG/5ML 473 ML PO PRN (19:50)
[2024-12-09] MEDS ORDERED: Ondansetron 4 MG SoluTab MM PRN (19:55)
[2024-12-09] MEDS ORDERED: HYDROcodone 5-APAP 325 TAB PO PRN (20:00)
[2024-12-09 21:42] VITALS: BP 157/102
--- NOTE | 2024-12-10 04:41 | NUR ---
LATE ADMISSION NOTE: pATIENT CAME TO UNIT WITH SECURITY AT 2010. hE WAS VERY ANXIOUS, BUT ALERT AND ORIENTED AND COOPERATIVE WITH STAFF. HADN'T EATEN SINCE THE DAY PREVIOUS SO WAS TAKEN INTO THE DINING ROOM FOR SNACK TIME WHERE HE SAT FOR APPROXIMATELY 45 MINUTES TO ONE HOUR TALKING TO THIS RN AND MHA REGARDING HIS FEAR AND DISTRUST OF THE TREATMENT HE HAD RECEIVED THUS FAR WITH HIS [facility] PROVIDER. PATIENT WANTED TO TAKE HIS OWN LATUDA INSTEAD OF THE ZYPREXA THAT WAS ORDERED FOR HIM HE COMPLETELY WANTED TO STAY ON HIS OWN REGIMEN FROM HIS PCP. THIS RN EXPLAINED THAT HE COULD SPEAK WITH THE ONCOMING PHYSICIAN IN THE MORNING ABOUT THAT MEDICATION. HE HAD DIFFICULTY UNDERSTANDING WHY HE WAS PUT ON A HOLD "IN THE FIRST PLACE" HE DIDN'T RECALL EVER BEING TOLD WHY. HE DISCUSSED HIS SEVERE CHRONIC PAIN WITH HIS NEWLY DIAGNOSED MYELOPRELIFERATIVE NEOPLASM DISEASE. AND HOW EVERY JOINT FEELS IF IT WAS BURNING UP. HE FINALLY ALLOWED ER TO GIVE HIM 10MG OXYCODONE JUST PRIOR TO HIM COMING TO [facility] AND WAS STARTING TO GET A LITTLE RELIEF. HYDROCODONE GIVEN AT 2400 AND 0400 WITH GOOD RELIEF. PATIENT APPEARED TO HAVE A GOOD NIGHT'S SLEEP.
--- NOTE | 2024-12-10 05:00 | NUR ---
SHIFT SUMMARY Patient is A&OX4, pleasant and cooperative with care. He did refuse his HS Zyprexa last night as he had wanted his home RX of Latuda. Pain control very important as he has chronic severe joint pain. He seemed to do ok with one Imperial every 4 hours overnight. PLEASE READ ADMISSION NOTE FOR ADDITIONAL INFORMATION
[2024-12-10 08:25] LABS: CHOL/HDL RATIO 3.8; Cholesterol 133 mg/dL (50-200); HDL Cholesterol 35 mg/dL (>39); LDL/HDL RATIO 2.2; Low Density Lipoprotein Chol 78 mg/dL (0-110); Triglycerides 99 mg/dL (30-160); Very Low Density Lipoprot Chol 19 mg/dL (6-32)
[2024-12-10] MEDS ORDERED: Multivitamins 1 Tab PO SCH (09:00)
[2024-12-10] MEDS ORDERED: DULoxetine HCL 30 MG Cap DR PO SCH (09:00)
[2024-12-10] MEDS ORDERED: Polyethylene Glycol 3350 17 gm PO PRN (09:25)
--- NOTE | 2024-12-10 09:45 | NUR ---
Ethics consult order received and processed. Medical history, treatment notes and assessment materials reviewed. Questions revolving around the ethical permissibility of a 5 day judicial hold submitted and examined. If the principal satisfies the threshold criteria iterated in the [place] Screening Protocol, then the enactment and retainment of a medical hold for suicidality would be sufficiently justified and necessary to ensure the safety of the principal. Namely and foundationally, if the initial and ongoing answers to questions 4, 5, and 6 are affirmative, and number 6 meets the 3 month measure, then a hold for high risk suicidality is licit. If the principal denies a willingness to act on suicidal thoughts, has not formulated a plan or does not intend to carry it out, and has not or is not engaged in preperatory work to end his own life, then a hold predicated on suicidality would fail to satisfy the essential critiera and therefore be ethically non-permissible.
[2024-12-10 09:52] VITALS: BP 150/110
[2024-12-10] MEDS ORDERED: LATUDA PO (11:04)
--- NOTE | 2024-12-10 13:04 | NUR ---
DISCHARGE NOTE PT AxOx4. PLEASANT AND COOPERATIVE WITH CARE. THE PATIENT IS DISCHARGING HOME TODAY. HE DENIED SI/HI AND AVTH. PT WAS QUITE UPSET WITH CERTAIN TREATMENT DURING HIS ADMISSION TO U. THE PATIENT EXPRESSED "DEEP DISTRUST" IN THE PROVIDER BASED ON HIS "THREATS TO KEEP ME HERE FOR 180 DAYS." HE STATED "HE MADE ME FEEL UNSAFE AND I WAS IN TOO MUCH PAIN TO BE ABLE TO EVEN HAVE A CONVERSATION WITH HIM." THE PATIENT WANTED TO CLARIFY THAT HE WAS NEVER SUICIDAL, BUT ONLY EXPRESSED INTEREST IN THE WITH DIGNITY [employer] AND SAID "THE DOCTOR USED THAT STATEMENT TO HOLD ME HERE." THE PATIENT'S ADMISSION WAS COMPLICATED BY HIS CHRONIC PAIN RELATED TO HIS THROMBOCYTOSIS. THE PATIENT SPENT MANY HOURS LYING IN BED, STARING UP AT THE CEILING, REFUSING TO EAT OR TAKE MEDICATION WHILE IN THE BHU. THE PATIENT STATED TODAY THAT HE WAS "IN A HAZE AND DOESN'T EVEN REMEMBER DOING THAT." THE PATIENT SEES ELENA JEWELL FROM [facility] WHO HE SAYS MANAGES HIS MEDS AND PAIN. FOLLOW UP APPT WITH ELENA SECURED PRIOR TO DC. THE PATIENT'S HOLD WAS DETERMINED TO BE INVALID THERE WERE NO DATES OR COUNTY FILLED OUT, THEREFORE, NO HOLD RELEASE DOCUMENTS NEEDED TO BE SIGNED. DISCHARGE INSTRUCTIONS DISCUSSED INCLUDING DC MEDICATION, FOLLOW UP APPOINTMENT INFO WITH PCP AND RESOURCES ON MANAGING MENTAL HEALTH. PT WAS ALSO PROVIDED THE PATIENT ADVOCATE CONTACT INFO, AND GRIEVANCE PROCESS INFO, PER HIS REQUEST. PT VERBALIZED UNDERSTANDING AND THANKED THE NURSING STAFF FOR THEIR CARE. THE PATIENT BELONGINGS WERE RETURNED, AND HIS TRANSPORTATION ARRIVED AT APPROX 1304 WHEN HE WAS SAFELY ESCORTED OUT.
== END 2024-12-10 13:04 | disposition home or self-care (01) | DRG 885 ==
LOC: BHU 18:15
PROVIDERS: ADMIT Student in an Organized Health Care Education/Training Program
DX: F31.81 Bipolar II disorder (principal); I10 Essential (primary) hypertension; Z66 Do not resuscitate; F17.210 Nicotine dependence, cigarettes, uncomplicated; Z86.73 Personal history of transient ischemic attack (TIA), and cerebral infarction without residual deficits; Z98.890 Other specified postprocedural states; Z79.82 Long term (current) use of aspirin; Z79.02 Long term (current) use of antithrombotics/antiplatelets; Z79.899 Other long term (current) drug therapy; Z88.7 Allergy status to serum and vaccine
CPT/HCPCS: 80061; 83036; A9270